=== PATIENT | female | born 1955 | race Caucasian/White ===

== ENCOUNTER 2023-11-23 20:17 | Observation (INO) ==
[2023-11-23] MEDS ORDERED: Ondansetron 4 mg VIAL 2 MG/ML 2 ml VIAL IV PRN (21:33)
[2023-11-23] MEDS ORDERED: NS 0.9% 1000 ml BAG 1,000 ML IV SCH (21:45)
[2023-11-23 21:49] LABS: ABS Basophils 0.1 10^3/uL (0.0-0.1); ABS Eosinophils 0.3 10^3/uL (0.0-0.5); ABS Lymphocytes 1.5 10^3/uL (1.0-4.8); ABS Monocytes 0.8 10^3/uL (0.0-0.9); ABS Neutrophils 4.6 10^3/uL (1.5-7.6); ABS Nucleated RBC 0.01 10^3/ul; Eosinophil % 4.2 %; Hemoglobin 12.1 g/dL (11.5-14.3); Lymphocyte % 20.3 %; Mean Corpuscular Hemoglobin 30.4 pg (27-33); Mean Corpuscular Hgb Conc 33.4 g/dL (31-36); Mean Platelet Volume 8.6 fL (7.5-11.2); Nucleated Red Blood Cells % 0.1 %/100WBC (0.0-0.8); Platelet Count 134 10^3/uL (150-450); Red Blood Count 3.96 10^6/uL (3.63-4.92); Red Cell Distribution Width 16.2 % (12-17); White Blood Count 7.4 10^3/uL (3.8-11.8)
[2023-11-23 22:12] LABS: Albumin 3.9 g/dL (3.2-5.2); Albumin/Globulin Ratio 1.4 (1-3); Calcium 10.1 mg/dL (8.6-10.3); Creatinine, Serum 3.2 mg/dL (0.51-0.95); Globulin 2.8 g/dL (2-4); Magnesium 2.2 mg/dL (1.9-2.7); Potassium 3.3 mmol/L (3.5-5.0); Total Bilirubin 0.9 mg/dL (0.2-1.0); Total Protein 6.7 g/dL (6.4-8.9); eGFR CKD-EPI 15.1 (>60)
[2023-11-23] MEDS ORDERED: Ondansetron ODT 4 mg TAB 4 MG TAB PO PRN (23:20)
[2023-11-23] MEDS ORDERED: PEG 3000 GI LAVAGE 1 GALLON PO ONE (23:26)
[2023-11-23] MEDS ORDERED: Pantoprazole VIAL 40 MG VIAL IV SCH (23:45)
[2023-11-23] MEDS ORDERED: Dextrose 50% Syringe 50 ml 25 GM/50 ML SYRINGE IV PUSH PRN (23:59)
[2023-11-24] MEDS: Insulin GLARGINE 100 un/ml 10 ml VIAL SUBCUT SCH ×2 (00:32→21:45)
[2023-11-24] MEDS ORDERED: Potassium Chlor 20 meq TAB.ER PO ONE (06:47)
[2023-11-24 09:01] LABS: ABS Basophils 0.1 10^3/uL (0.0-0.1); ABS Eosinophils 0.4 10^3/uL (0.0-0.5); ABS Lymphocytes 1.4 10^3/uL (1.0-4.8); ABS Monocytes 0.9 10^3/uL (0.0-0.9); ABS Neutrophils 4.9 10^3/uL (1.5-7.6); Eosinophil % 4.6 %; Hematocrit 37.1 % (35-45); Hemoglobin 12.4 g/dL (11.5-14.3); Lymphocyte % 18.4 %; Mean Corpuscular Hemoglobin 30.2 pg (27-33); Mean Corpuscular Hgb Conc 33.5 g/dL (31-36); Mean Corpuscular Volume 90.2 fL (80-97); Mean Platelet Volume 8.5 fL (7.5-11.2); Platelet Count 132 10^3/uL (150-450); Red Blood Count 4.12 10^6/uL (3.63-4.92); Red Cell Distribution Width 16.1 % (12-17); White Blood Count 7.7 10^3/uL (3.8-11.8)
[2023-11-24 09:18] LABS: Creatinine, Serum 2.97 mg/dL (0.51-0.95); Potassium 2.9 mmol/L (3.5-5.0); eGFR CKD-EPI 16.5 (>60)
[2023-11-24] MEDS ORDERED: Potassium Chloride LIQUID 20 MEQ/15 ML LIQUID PO SCH (11:00)
[2023-11-24 13:11] LABS: INR 1.95 (0.83-1.13)
[2023-11-24 13:37] LABS: Calcium 10.1 mg/dL (8.6-10.3); Creatinine, Serum 2.92 mg/dL (0.51-0.95); Potassium 3.1 mmol/L (3.5-5.0); eGFR CKD-EPI 16.9 (>60)
[2023-11-24] MEDS ORDERED: Potassium Chloride LIQUID 20 MEQ/15 ML LIQUID PO ONE ×2 (18:31→21:15)
[2023-11-24 20:51] LABS: Calcium 10.1 mg/dL (8.6-10.3); Creatinine, Serum 2.81 mg/dL (0.51-0.95); Potassium 3.3 mmol/L (3.5-5.0); eGFR CKD-EPI 17.7 (>60)
[2023-11-24] MEDS: Albuterol HFA INHALER 8 gm MDI INH PRN (22:24)
[2023-11-25] MEDS: Albuterol HFA INHALER 8 gm MDI INH PRN (10:02)
[2023-11-25 11:31] LABS: Calcium 10.1 mg/dL (8.6-10.3); Creatinine, Serum 2.85 mg/dL (0.51-0.95); Magnesium 2.2 mg/dL (1.9-2.7); Potassium 3.7 mmol/L (3.5-5.0); eGFR CKD-EPI 17.4 (>60)
[2023-11-25 16:14] LABS: Body Fluid Total Nucleated 85 /mcL
[2023-11-25 16:56] LABS: Body Fluid Appearance Cloudy; Body Fluid Color Yellow; Body Fluid Mono 50 %; Body Fluid Source Peritonial Fluid; Body Fluid Total Cells Counted 4
[2023-11-25] MEDS: Insulin GLARGINE 100 un/ml 10 ml VIAL SUBCUT SCH (20:53)
[2023-11-26 10:15] VITALS: BP 132/97
[2023-11-27 09:13] LABS: Lactate Dehydrogenase, BF 91 U/L
[2023-11-27 10:43] LABS: Albumin, BF 2.1 g/dL; Fluid Type, Albumin PERITONEAL; Fluid Type, Protein, Total PERITONEAL; Glucose, BF 252 mg/dL; Total Protein, BF 2.9 g/dL
== END 2023-11-26 12:15 | disposition home or self-care (01) ==
LOC: EDHOLD 20:17 → ED 20:17 → SUATTDRO 21:33 → SSU 11-24 13:08
PROVIDERS: ADMIT Internal Medicine; ATTEND Student in an Organized Health Care Education/Training Program